=== PATIENT | male | born 1990 | race Caucasian/White ===

== ENCOUNTER 2016-08-03 19:28 | Emergency (ER) | payer OTHER ==
--- NOTE | 2016-08-03 22:31 | ED ORDER SUMMARY ---
..... Patient: AMY PEREZ JR OrderSheet [facility] VisitID: [id number] [place] [address] 26y, M Registration Date/Time: 08/03/2016 ORDER SHEET Weight: 70.3 kg (stated) Allergies: No Known Drug Allergy GENERAL ORDERS: CBC w Diff Urgent (20:48 08/03/2016 EKoroleva P.A.-C) (Ack 20:50 SRedmond) (21:08 DDean R.N.) CMP Urgent (20:48 08/03/2016 EKoroleva P.A.-C) (Ack 20:50 SRedmond) (21:08 DDean R.N.) UA-Culture if indicated Urgent (20:48 08/03/2016 EKoroleva P.A.-C) (Ack 20:50 SRedmond) (21:08 DDean R.N.) Lipase Urgent (20:48 08/03/2016 EKoroleva P.A.-C) (Ack 20:50 SRedmond) (21:08 DDean R.N.) MEDICATION ORDERS: IV FLUIDS: IV NS : initial bolus 1000 mL (1000 mL/hr), then 1000 mL/hr for X1 (NOW); Luis Daniel (20:47 08/03/2016 EKoroleva P.A.-C) (21:10 DDean R.N.) Reglan IV 10 mg (NOW) (20:47 08/03/2016 EKoroleva P.A.-C) (21:10 DDean R.N.) Zofran IV 8 mg (NOW) (20:48 08/03/2016 EKoroleva P.A.-C) (21:10 DDean R.N.) ORDER SHEET NOTES: [Electronically signed by Digna Cannon R.N. (23:13 08/03/2016)] [Electronically signed by Sagrario Nuñez P.A.-C (00:53 08/04/2016)] [Electronically locked/signed by Digna Cannon R.N. (23:13 08/03/2016)]
--- NOTE | 2016-08-03 22:31 | ED ORDER SUMMARY ---
..... Patient: AMY PEREZ JR OrderSheet [facility] VisitID: [id number] [place] [address] 26y, M Registration Date/Time: 08/03/2016 ORDER SHEET Weight: 70.3 kg (stated) Allergies: No Known Drug Allergy GENERAL ORDERS: CBC w Diff Urgent (20:48 08/03/2016 EKoroleva P.A.-C) (Ack 20:50 SRedmond) (21:08 DDean R.N.) CMP Urgent (20:48 08/03/2016 EKoroleva P.A.-C) (Ack 20:50 SRedmond) (21:08 DDean R.N.) UA-Culture if indicated Urgent (20:48 08/03/2016 EKoroleva P.A.-C) (Ack 20:50 SRedmond) (21:08 DDean R.N.) Lipase Urgent (20:48 08/03/2016 EKoroleva P.A.-C) (Ack 20:50 SRedmond) (21:08 DDean R.N.) MEDICATION ORDERS: IV FLUIDS: IV NS : initial bolus 1000 mL (1000 mL/hr), then 1000 mL/hr for X1 (NOW); Luis Daniel (20:47 08/03/2016 EKoroleva P.A.-C) (21:10 DDean R.N.) Reglan IV 10 mg (NOW) (20:47 08/03/2016 EKoroleva P.A.-C) (21:10 DDean R.N.) Zofran IV 8 mg (NOW) (20:48 08/03/2016 EKoroleva P.A.-C) (21:10 DDean R.N.) ORDER SHEET NOTES: [Electronically signed by Digna Cannon R.N. (23:13 08/03/2016)] [Electronically signed by Sagrario Nuñez P.A.-C (00:53 08/04/2016)] [Electronically locked/signed by Digna Cannon R.N. (23:13 08/03/2016)]
--- NOTE | 2016-08-03 22:31 | ED NURSING NOTES ---
Clinical Report - Nurses [facility] [address] [place] [address] 08/03/2016 19:29 Patient: AMY PEREZ JR TRIAGE Triage time 2019. Acuity: LEVEL 3. Chief Complaint: ABDOMINAL PAIN, NAUSEA, VOMITING and DIARRHEA. 20:20. --23:13 Digna Cannon R.N. 20:20 08/03/16. BP: 104/72. HR: 88. RR: 18. O2 saturation: 100%. Temp: 98.5 F. Pain level now: 09/23. --23: Digna Cannon R.N. Weight: 70.3 kg stated. Height/Length: 73 inches Per Patient. BMI: 20.5. --20:30 Digna Cannon R.N. Medications None. --20:30 Digna Cannon R.N. Allergies No Known Drug Allergy. --20:30 Digna Cannon R.N. History Arrived by private vehicle. Historian: patient. Unaccompanied. This started yesterday. He has had vomiting (TNTC). He has had diarrhea (TNTC). He has had abdominal pain (generalized midline abd cindy "around my belly button"). SURGERY HX: No history of previous surgery. SOCIAL HX: Light tobacco smoker (cigarette)- less than 1/2 a pack per day. Occasional alcohol use. No drug use. --23:13 Digna Cannon R.N. PROBLEMS: Gastroenteritis [RuleOut]. --20:29 Digna Cannon R.N. ADDITIONAL SURGERIES: no known surgeries. Interventions ID band on patient. To treatment room. --23:13 Digna Cannon R.N. PHYSICAL ASSESSMENT 20:20. Ambulatory to room. Patient gowned. GENERAL / NEURO / PSYCH: Alert. Oriented X 4. Appears in pain. RESPIRATORY: Respirations not labored. CVS: Capillary refill less than 2 seconds. GI / : Abdomen soft. SKIN: Skin is warm and dry. --20:44 Digna Cannon R.N. --23:11 Digna Cannon R.N. NURSING PROGRESS NOTES 20:20. Patient gowned. Reassurance given. Patient identifiers checked. Call light placed in reach. Side rails up. Bed placed in lowest position. Patient ready for evaluation- chart flagged. --20:44 Digna Cannon R.N. 21:00 08/03/2016 Site #1 started via IV in the right antecubital space with an 20g angiocath, with aseptic technique and good blood return; one attempt. Blood drawn: rainbow set. Labeled in the presence of the patient and sent to the lab. Saline lock flushed with 10 mL saline. --21:09 Digna Cannon R.N. 21:05 08/03/2016 Started bag #1 1000 mL IV Fluids IV NS (Saline); at 1000 mL/hr over 1 hour(s) via site #1 via IV pump. IV patency established. IV site checked: no pain, redness, or swelling. IV flushed thoroughly pre- and post-medication administration. --21:10 Digna Cannon R.N. 21:10 08/03/2016 Reglan (Metoclopramide HCl) IVP 10 mg given over 1 minute(s) via site #1. IV patency established. IV site checked: no pain, redness, or swelling. IV flushed thoroughly pre- and post-medication administration. IVP given by RN. --21:10 Digna Cannon R.N. 21:10 08/03/2016 Zofran (Ondansetron HCl) IVP 8 mg given over 1 minute(s) via site #1. IV patency established. IV site checked: no pain, redness, or swelling. IV flushed thoroughly pre- and post-medication administration. IVP given by RN. --21:10 Digna Cannon R.N. 20:45. Patient ID band checked for patient name and birthdate: patient confirmed. Clean catch urine collected; sample sent to lab for urinalysis and culture. Specimen labeled in the presence of the patient. --22:28 Digna Cannon R.N. 22:15 08/03/2016 IV Fluids IV NS Discontinued: bag #1 infused. Total amount infused: 1000 mL. IV patency established. IV site checked: no pain, redness, or swelling. IV flushed thoroughly. (converted to saline lock). --22:28 Digna Cannon R.N. 21:05 IV started and blood drawn. pt resting quietly. --22:29 Digna Cannon R.N. 22:15 08/03/16. BP: 95/52. HR: 67. RR: 18. O2 saturation: 98% on room air. Temp: 98.4 F. Pain level now: 0/10. Additional comments: pt denies pain, resting comfortably, watching t.v. . --22:30 Digna Cannon R.N. DISPOSITION / DISCHARGE 22:40. Condition at departure: stable. No learning barriers present. Discharge instructions provided and reviewed with the patient. Reviewed medication(s) (zofran). Patient verbalized understanding. Written instructions provided in Icelandic. The patient was discharged home. He left the Emergency Department ambulatory and via private vehicle. Patient driving. --23:11 Digna Cannon R.N. 22:40 08/03/16. BP: 90/60. HR: 68. RR: 16. O2 saturation: 100%. Temp: deferred. Pain level now: 0/10. --23:11 Digna Cannon R.N. Locked/Released at 08/03/2016 23:13 by Digna Cannon R.N.
--- NOTE | 2016-08-03 22:31 | ED CLINICAL REPORT ---
Clinical Report - [facility] [address] [place] [address] 08/03/2016 19:29 Patient: AMY PEREZ JR Time Seen: 21:15 Aug 03 2016. Arrived- By private vehicle. Historian- patient. HISTORY OF PRESENT ILLNESS Chief Complaint: VOMITING and DIARRHEA. This started just prior to arrival and is still present. (She presents to the emergency department status post eating tacos and developed vomiting and diarrhea. He has had some abdominal discomfort. He denies any other sick contacts, however nobody else ate the food. Denies any hematochezia, hemoptysis. Denies any melena. Denies any fevers. Denies any recent foreign travel or any antibiotic use.). REVIEW OF SYSTEMS No fever, difficulty with urination or cough. All systems otherwise negative, except as recorded above. SOCIAL HISTORY Smoker- current status unknown. Alcohol use. ADDITIONAL NOTES The nursing notes have been reviewed. PHYSICAL EXAM Vital Signs: 08/03/2016 20:20 BP: 104/72. HR: 88. RR: 18. O2 saturation: 100%. Temp: 98.5 F. Pain level now: 6/10. Appearance: Alert. No acute distress. ENT: Nose normal. Pharynx normal. Neck: Normal inspection. CVS: Normal heart rate and rhythm. Heart sounds normal. Rhythm normal. No extra heart sounds. Respiratory: No respiratory distress. Breath sounds normal. No accessory muscle use or decreased air movement. Abdomen: Soft and nontender. Bowel sounds normal. The bowel sounds are not abnormal. Back: Normal inspection. No CVA tenderness. Skin: Skin warm. Normal skin color. Neuro: Oriented X 3. LABS, X-RAYS, AND EKG Laboratory Tests: UA-Culture if indicated: (BRIAN: 08/03/2016 20:50) ( MsgRcvd 08/03/2016 21:17) Final results Test Result Flag Units (Reference) URINE COLOR YELLOW URINE APPEARANCE CLEAR URINE GLUCOSE NEGATIVE (NEGATIVE) URINE BILIRUBIN ICTOTEST NEGATIVE (NEGATIVE) URINE KETONE 2+ (NEGATIVE) URINE SPECIFIC GRAVITY 1.025 (1.010-1.030) URINE PH 6.0 (5.0-8.0) URINE PROTEIN 1+ (NEGATIVE) URINE UROBILINOGEN 1.0 EU/dL (0.2-1.0) URINE NITRITE NEGATIVE (NEGATIVE) URINE BLOOD NEGATIVE (NEGATIVE) URINE LEUK ESTERASE NEGATIVE (NEGATIVE) URINE RBC 0-1 rbc/hpf (0-1) URINE WBC 0-1 wbc/hpf (0-1) URINE EPITHELIAL CELLS 0-1 EPI/hpf (0-5) URINE BACTERIA FEW (1+) (NONE SEEN) URINE COMMENT CULT NOT INDICATED 5-10 HYALINE CAST. 2+ MUCOUS.URINE CULTURES ARE SET-UP BASED ON THE FOLLOWING CRITERIA:POSITIVE NITRITEPOSITIVE LEUKOCYTE ESTERASEGREATER THAN 10 WHITE BLOOD CELLSMODERATE (2+) OR GREATER BACTERIA CBC w Diff: (BRIAN: 08/03/2016 21:00) ( [facility] 08/03/2016 21:18) Final results Test Result Flag Units (Reference) WHITE BLOOD COUNT 10.1 K/uL (4.5-11.5) RED BLOOD COUNT 5.12 M/uL (4.50-5.90) HEMOGLOBIN 15.5 gm/dL (13.5-17.5) HEMATOCRIT 46.4 % (41.0-53.0) MEAN CELL VOLUME 91 fL (80-100) MEAN CORPUSCULAR HGB 30 pg (26-34) MEAN CORPUSCULAR HGB CONC 34 g/dL (31-37) RED CELL DISTRIBUTION WIDTH 13.1 % (11.6-14.8) PLATELET COUNT 174 K/uL (150-400) NEUTROPHIL % 74.5 % (50-75) LYMPH % 18.7 L % (25-40) MONO % 6.4 % (3-14) EOSINOPHIL % 0.1 % (0-4) BASOPHIL % 0.3 % (0-2) CMP: (BRIAN: 08/03/2016 21:00) ( [facility] 08/03/2016 21:48) Final results Test Result Flag Units (Reference) GLUCOSE 115 H mg/dL (70-110) BUN 22 H mg/dL (7-18) CREATININE 1.0 mg/dL (0.6-1.3) Estimated GFR >60 mL/min Estimated GFR- >60 mL/min Note: Persistent reduction over 3 months in eGFR<60 mL/min/1.73 m2 defines CKD. Patients with eGFR values>=60 mL/min/1.73 m2 may also have CKD if evidence ofpersistent proteinuria. Additional information may be foundat www.kidney.org. SODIUM 140 mmol/L (136-145) POTASSIUM 4.2 mmol/L (3.5-5.1) CHLORIDE 104 mmol/L (98-107) CARBON DIOXIDE 26 mmol/L (21-32) CALCIUM 9.6 mg/dL (8.5-10.1) TOTAL PROTEIN 7.8 g/dL (6.4-8.2) ALBUMIN 4.1 g/dL (3.3-5.0) BILIRUBIN, TOTAL 0.7 mg/dL (0.0-1.0) ALKALINE PHOSPHATASE 76 U/L (46-116) AST (SGOT) 11 L U/L (15-37) ALT (SGPT) 24 U/L (12-78) LIPASE 87 U/L (73-393) . PROGRESS AND PROCEDURES Course of Care: During the time in the ED, the following DDX were considered: acute surgical abdomen, hemodynamic or metabolic instability, dehydration, gastroenteritis-viral, food borne, or bacterial, food intolerance, irritable or inflammatory bowel, infection, sepsis. 08/03/2016 22:40 BP: 90/60. HR: 68. RR: 16. O2 saturation: 100%. Pain level now: 0/10. Patient is stable. Physical exam findings are improved. Symptoms better. Patient/family counseled. Disposition: Discharged. CLINICAL IMPRESSION Vomiting with nausea, dehydration and volume depletion. Diarrhea INSTRUCTIONS Do not work today, tomorrow. Prescription Medications: Zofran (orally disintegrating tablets) 4 mg: take 1 orally every 6 hours for 3 days as needed for nausea. Dispense ten (10). No refill. Substitution is permissible. (Electronically signed by Sagrario Nuñez P.A.-C 08/04/2016 0:53)
--- NOTE | 2016-08-04 00:53 | ED MAR SUMMARY ---
..... Medication Administration Record [facility] [address] [address] Patient: AMY PEREZ Visit ID: [id number] 26y, M Weight: 70.3 kg Height/Length: 73 in BMI: 20.5 ALLERGIES: No Known Drug Allergy Start 21:05 08/03/2016 Digna Cannon R.N., Stop 22:15 08/03/2016 Digna Cannon R.N. Medication Administered: IV NS (SALINE), Dose: IV Fluids over 1 hour(s), Rate: 1000 mL/hr, Dispensed: 1000 mL bag, Site: #1 right AC. Medication Ordered: IV NS : initial bolus 1000 mL (1000 mL/hr), then 1000 mL/hr for X1 (NOW); Luis Daniel. Given 21:08/03/2016 Digna Cannon R.N. Medication Administered: REGLAN [IVP] (METOCLOPRAMIDE HCL), Dose: 10 mg IVP over 1 minute(s), Site: #1 right AC. Medication Ordered: Reglan IV 10 mg (NOW). Given 21:10 08/03/2016 Digna Cannon R.N. Medication Administered: ZOFRAN [IVP] (ONDANSETRON HCL), Dose: 8 mg IVP over 1 minute(s), Site: #1 right AC. Medication Ordered: Zofran IV 8 mg (NOW).
--- NOTE | 2016-08-04 00:53 | ED MAR SUMMARY ---
..... Medication Administration Record [facility] [address] [place] [address] Patient: AMY PEREZ Visit ID: [id number] 26y, M Weight: 70.3 kg Height/Length: 73 in BMI: 20.5 ALLERGIES: No Known Drug Allergy Start 21:05 08/03/2016 Digna Cannon R.N., Stop 22:15 08/03/2016 Digna Cannon R.N. Medication Administered: IV NS (SALINE), Dose: IV Fluids over 1 hour(s), Rate: 1000 mL/hr, Dispensed: 1000 mL bag, Site: #1 right AC. Medication Ordered: IV NS : initial bolus 1000 mL (1000 mL/hr), then 1000 mL/hr for X1 (NOW); Luis Daniel. Given 21:08/03/2016 Digna Cannon R.N. Medication Administered: REGLAN [IVP] (METOCLOPRAMIDE HCL), Dose: 10 mg IVP over 1 minute(s), Site: #1 right AC. Medication Ordered: Reglan IV 10 mg (NOW). Given 21:10 08/03/2016 Digna Cannon R.N. Medication Administered: ZOFRAN [IVP] (ONDANSETRON HCL), Dose: 8 mg IVP over 1 minute(s), Site: #1 right AC. Medication Ordered: Zofran IV 8 mg (NOW).
--- NOTE | 2016-08-04 00:53 | ED MED RECONCILIATION SUMMARY ---
Patient: AMY PEREZ JR Medication Reconciliation Report [facility] VisitID: [id number] [address] [place] [address] 26y, M Registration Date/Time: 08/03/2016 Weight: 70.3 kg Height/Length: 73 in. BMI: 20.5 ALLERGIES: No Known Drug Allergy The patient's Home Medications are listed below: NONE. The source(s) of the original Home Medication information: Not obtained. The following Medications were given to the patient in the Emergency Department: IV NS IV Fluids bolus 0, then 1000 mL/hr, administered: 08/03/2016 9:05:00 PM Reglan [IVP] IVP 10 mg, administered: 08/03/2016 9:10:00 PM Zofran [IVP] IVP 8 mg, administered: 08/03/2016 9:10:00 PM The following Medications were prescribed to the patient: Zofran (orally disintegrating tablets) 4 mg: take 1 orally every 6 hours for 3 days as needed for nausea. Dispense ten (10). No refill. Substitution is permissible. -- Sagrario Nuñez P.AShreyasC
--- NOTE | 2016-08-04 00:53 | ED DISCHARGE INSTRUCTIONS ---
Patient: AMY PEREZ JR General Instructions [facility] VisitID: [id number] [place] [address] 26y, M Registration Date/Time: 08/03/2016 Vomiting with nausea, dehydration and volume depletion. Diarrhea INSTRUCTIONS Do not work today, tomorrow. Prescription Medications: Zofran (orally disintegrating tablets) 4 mg: take 1 orally every 6 hours for 3 days as needed for nausea. Dispense ten (10). No refill. Substitution is permissible. ADDITIONAL INFORMATION Vomiting [6Yr-Adult] Vomiting is a common symptom that may be due to different causes. These include gastroenteritis ("stomach flu"), food poisoning and gastritis. There are other more serious causes of vomiting which may be hard to diagnose early in the illness. Therefore, it is important to watch for the warning signs listed below. The main danger from repeated vomiting is dehydration. This is due to excess loss of water and minerals from the body. When this occurs, body fluids must be replaced. Home Care: If symptoms are severe, rest at home for the next 24 hours. You may use acetaminophen (Tylenol) or ibuprofen (Motrin, Advil) to control fever, unless another medicine was prescribed. [NOTE : If you have chronic liver or kidney disease or ever had a stomach ulcer or GI bleeding, talk with your doctor before using these medicines.] (Aspirin should never be used in anyone under 18 years of age who is ill with a fever. It may cause severe liver damage.) Avoid tobacco and alcohol use, which may worsen your symptoms. If medicines for vomiting were prescribed, take as directed. Once vomiting stops, then follow these guidelines: During The First 12-24 Hours follow the diet below: FRUIT JUICES: Apple, grape juice, clear fruit drinks, and electrolyte replacement drinks. BEVERAGES: Soft drinks without caffeine; mineral water (plain or flavored), decaffeinated tea and coffee. SOUPS: Clear broth, consomm and bouillon DESSERTS: Plain gelatin, popsicles and fruit juice bars. As you feel better, you may add 6-8 ounces of yogurt per day. During The Next 24 Hours you may add the following to the above: Hot cereal, plain toast, bread, rolls, crackers Plain noodles, rice, mashed potatoes, chicken noodle or rice soup Unsweetened canned fruit (avoid pineapple), bananas Limit caffeine and chocolate. No spices or seasonings except salt. During The Next 24 Hours Gradually resume a normal diet, as you feel better and your symptoms lessen. Follow Up with your doctor as advised if you are not improving over the next 2-3 days. Get Prompt Medical Attention if any of the following occur: Constant right-sided lower abdominal pain or increasing general abdominal pain Continued vomiting (unable to keep liquids down) for 24 hours Frequent diarrhea (more than 5 times a day); blood (red or black color) or mucus in diarrhea Reduced urine output or extreme thirst Weakness, dizziness or fainting Unusually drowsy or confused Fever of 100.4F (38C) oral or higher, not better with fever medication Yellow color of the eyes or skin Gastroenteritis [Non-Infectious, 6 Yr-Adult] Your symptoms today are coming from the intestinal tract. This may occur as a result of food sensitivity, inflammation of the GI tract, medicines, stress or other causes not related to infection. This may last from 1-3 days. Antibiotics are not effective, but simple home treatment will be helpful. Home Care: If symptoms are severe, rest at home for the next 24 hours. You may use acetaminophen (Tylenol) or ibuprofen (Motrin, Advil) to control fever, unless another medicine was prescribed. [NOTE: If you have chronic liver or kidney disease or ever had a stomach ulcer or GI bleeding, talk with your doctor before using these medicines.] (Aspirin should never be used in anyone under 18 years of age who is ill with a fever. It may cause severe liver damage.) Avoid tobacco and alcohol use, which may make your symptoms worse. If medicines for diarrhea or vomiting were prescribed, take only as directed. Once vomiting stops, then follow these guidelines: During The First 12-24 Hours follow the diet below: gingerale, mineral water (plain or flavored), decaffeinated tea and coffee. During The Next 24 Hours you may add the following to the above: DURING THE NEXT 24 HOURS Gradually resume a normal diet, as you feel better and your symptoms lessen. Follow Up with your doctor as advised if you are not improving over the next 2-3 days. If a stool (diarrhea) sample was taken, you may call in 2 days (or as directed) for the results. Get Prompt Medical Attention if any of the following occur: Increasing abdominal pain or constant lower right abdominal pain Continued vomiting (unable to keep liquids down) Frequent diarrhea (more than 5 times a day) Blood in vomit or stool (black or red color) Reduced oral intake Dark urine, reduced urine output Weakness, dizziness, fainting Drowsiness, confusion, stiff neck or seizure Fever of 100.4F (38C) or higher, or as directed by your healthcare provider New rash Ondansetron Hydrochloride Oral tablet What is this medicine? ONDANSETRON (on ERICK se nathalia) is used to treat nausea and vomiting caused by chemotherapy. It is also used to prevent or treat nausea and vomiting after surgery. How should I use this medicine? Take this medicine by mouth with a glass of water. Follow the directions on your prescription label. Take your doses at regular intervals. Do not take your medicine more often than directed. Talk to your director radio news regarding the use of this medicine in children. Special care may be needed. What side effects may I notice from receiving this medicine? Side effects that you should report to your doctor or health care support representative as soon as possible: allergic reactions like skin rash, itching or hives, swelling of the face, lips or tongue breathing problems dizziness fast or irregular heartbeat feeling faint or lightheaded, falls fever and chills swelling of the hands or feet tightness in the chest Side effects that usually do not require medical attention (report to your doctor or health care support representative if they continue or are bothersome): constipation or diarrhea headache What may interact with this medicine? Do not take this medicine with any of the following medications: -apomorphine -cisapride -dofetilide -dronedarone -pimozide -thioridazine -ziprasidone This medicine may also interact with the following medications: -carbamazepine -phenytoin -rifampicin -tramadol -other medicines that prolong the QT interval (cause an abnormal heart rhythm) What if I miss a dose? If you miss a dose, take it as soon as you can. If it is almost time for your next dose, take only that dose. Do not take double or extra doses. Where should I keep my medicine? Keep out of the reach of children. Store between 2 and 30 degrees C (36 and 86 degrees F). Throw away any unused medicine after the expiration date. What should I tell my health care provider before I take this medicine? They need to know if you have any of these conditions: heart disease history of irregular heartbeat liver disease low levels of magnesium or potassium in the blood an unusual or allergic reaction to ondansetron, granisetron, other medicines, foods, dyes, or preservatives or trying to get breast-feeding What should I watch for while using this medicine? Check with your doctor or health care support representative right away if you have any sign of an allergic reaction. You have been given the following additional information: Vomiting (6Y-Adult) Gastroenteritis, Non-Infectious (Child) (Adult) Ondansetron Hydrochloride Oral tablet Do not work today, tomorrow. (Electronically signed by Sagrario Nuñez P.A.-C 08/04/2016 0:53)
--- NOTE | 2016-08-04 00:53 | ED MED RECONCILIATION SUMMARY ---
Patient: AMY PEREZ JR Medication Reconciliation Report [facility] VisitID: [id number] [address] [place] [address] 26y, M Registration Date/Time: 08/03/2016 Weight: 70.3 kg Height/Length: 73 in. BMI: 20.5 ALLERGIES: No Known Drug Allergy The patient's Home Medications are listed below: NONE. The source(s) of the original Home Medication information: Not obtained. The following Medications were given to the patient in the Emergency Department: IV NS IV Fluids bolus 0, then 1000 mL/hr, administered: 08/03/2016 9:05:00 PM Reglan [IVP] IVP 10 mg, administered: 08/03/2016 9:10:00 PM Zofran [IVP] IVP 8 mg, administered: 08/03/2016 9:10:00 PM The following Medications were prescribed to the patient: Zofran (orally disintegrating tablets) 4 mg: take 1 orally every 6 hours for 3 days as needed for nausea. Dispense ten (10). No refill. Substitution is permissible. -- Sagrario Nuñez P.AShreyasC
--- NOTE | 2016-08-04 00:53 | ED DISCHARGE INSTRUCTIONS ---
Patient: AMY PEREZ JR General Instructions Formerly [facility] VisitID: [id number] [place] [address] 26y, M Registration Date/Time: 08/03/2016 Vomiting with nausea, dehydration and volume depletion. Diarrhea INSTRUCTIONS Do not work today, tomorrow. Prescription Medications: Zofran (orally disintegrating tablets) 4 mg: take 1 orally every 6 hours for 3 days as needed for nausea. Dispense ten (10). No refill. Substitution is permissible. ADDITIONAL INFORMATION Vomiting [6Yr-Adult] Vomiting is a common symptom that may be due to different causes. These include gastroenteritis ("stomach flu"), food poisoning and gastritis. There are other more serious causes of vomiting which may be hard to diagnose early in the illness. Therefore, it is important to watch for the warning signs listed below. The main danger from repeated vomiting is dehydration. This is due to excess loss of water and minerals from the body. When this occurs, body fluids must be replaced. Home Care: If symptoms are severe, rest at home for the next 24 hours. You may use acetaminophen (Tylenol) or ibuprofen (Motrin, Advil) to control fever, unless another medicine was prescribed. [NOTE : If you have chronic liver or kidney disease or ever had a stomach ulcer or GI bleeding, talk with your doctor before using these medicines.] (Aspirin should never be used in anyone under 18 years of age who is ill with a fever. It may cause severe liver damage.) Avoid tobacco and alcohol use, which may worsen your symptoms. If medicines for vomiting were prescribed, take as directed. Once vomiting stops, then follow these guidelines: During The First 12-24 Hours follow the diet below: FRUIT JUICES: Apple, grape juice, clear fruit drinks, and electrolyte replacement drinks. BEVERAGES: Soft drinks without caffeine; mineral water (plain or flavored), decaffeinated tea and coffee. SOUPS: Clear broth, consomm and bouillon DESSERTS: Plain gelatin, popsicles and fruit juice bars. As you feel better, you may add 6-8 ounces of yogurt per day. During The Next 24 Hours you may add the following to the above: Hot cereal, plain toast, bread, rolls, crackers Plain noodles, rice, mashed potatoes, chicken noodle or rice soup Unsweetened canned fruit (avoid pineapple), bananas Limit caffeine and chocolate. No spices or seasonings except salt. During The Next 24 Hours Gradually resume a normal diet, as you feel better and your symptoms lessen. Follow Up with your doctor as advised if you are not improving over the next 2-3 days. Get Prompt Medical Attention if any of the following occur: Constant right-sided lower abdominal pain or increasing general abdominal pain Continued vomiting (unable to keep liquids down) for 24 hours Frequent diarrhea (more than 5 times a day); blood (red or black color) or mucus in diarrhea Reduced urine output or extreme thirst Weakness, dizziness or fainting Unusually drowsy or confused Fever of 100.4F (38C) oral or higher, not better with fever medication Yellow color of the eyes or skin Gastroenteritis [Non-Infectious, 6 Yr-Adult] Your symptoms today are coming from the intestinal tract. This may occur as a result of food sensitivity, inflammation of the GI tract, medicines, stress or other causes not related to infection. This may last from 1-3 days. Antibiotics are not effective, but simple home treatment will be helpful. Home Care: If symptoms are severe, rest at home for the next 24 hours. You may use acetaminophen (Tylenol) or ibuprofen (Motrin, Advil) to control fever, unless another medicine was prescribed. [NOTE: If you have chronic liver or kidney disease or ever had a stomach ulcer or GI bleeding, talk with your doctor before using these medicines.] (Aspirin should never be used in anyone under 18 years of age who is ill with a fever. It may cause severe liver damage.) Avoid tobacco and alcohol use, which may make your symptoms worse. If medicines for diarrhea or vomiting were prescribed, take only as directed. Once vomiting stops, then follow these guidelines: During The First 12-24 Hours follow the diet below: gingerale, mineral water (plain or flavored), decaffeinated tea and coffee. During The Next 24 Hours you may add the following to the above: DURING THE NEXT 24 HOURS Gradually resume a normal diet, as you feel better and your symptoms lessen. Follow Up with your doctor as advised if you are not improving over the next 2-3 days. If a stool (diarrhea) sample was taken, you may call in 2 days (or as directed) for the results. Get Prompt Medical Attention if any of the following occur: Increasing abdominal pain or constant lower right abdominal pain Continued vomiting (unable to keep liquids down) Frequent diarrhea (more than 5 times a day) Blood in vomit or stool (black or red color) Reduced oral intake Dark urine, reduced urine output Weakness, dizziness, fainting Drowsiness, confusion, stiff neck or seizure Fever of 100.4F (38C) or higher, or as directed by your healthcare provider New rash Ondansetron Hydrochloride Oral tablet What is this medicine? ONDANSETRON (on ERICK se nathalia) is used to treat nausea and vomiting caused by chemotherapy. It is also used to prevent or treat nausea and vomiting after surgery. How should I use this medicine? Take this medicine by mouth with a glass of water. Follow the directions on your prescription label. Take your doses at regular intervals. Do not take your medicine more often than directed. Talk to your salvage worker regarding the use of this medicine in children. Special care may be needed. What side effects may I notice from receiving this medicine? Side effects that you should report to your doctor or health primary care nurse practitioner as soon as possible: allergic reactions like skin rash, itching or hives, swelling of the face, lips or tongue breathing problems dizziness fast or irregular heartbeat feeling faint or lightheaded, falls fever and chills swelling of the hands or feet tightness in the chest Side effects that usually do not require medical attention (report to your doctor or health primary care nurse practitioner if they continue or are bothersome): constipation or diarrhea headache What may interact with this medicine? Do not take this medicine with any of the following medications: -apomorphine -cisapride -dofetilide -dronedarone -pimozide -thioridazine -ziprasidone This medicine may also interact with the following medications: -carbamazepine -phenytoin -rifampicin -tramadol -other medicines that prolong the QT interval (cause an abnormal heart rhythm) What if I miss a dose? If you miss a dose, take it as soon as you can. If it is almost time for your next dose, take only that dose. Do not take double or extra doses. Where should I keep my medicine? Keep out of the reach of children. Store between 2 and 30 degrees C (36 and 86 degrees F). Throw away any unused medicine after the expiration date. What should I tell my health care provider before I take this medicine? They need to know if you have any of these conditions: heart disease history of irregular heartbeat liver disease low levels of magnesium or potassium in the blood an unusual or allergic reaction to ondansetron, granisetron, other medicines, foods, dyes, or preservatives or trying to get breast-feeding What should I watch for while using this medicine? Check with your doctor or health primary care nurse practitioner right away if you have any sign of an allergic reaction. You have been given the following additional information: Vomiting (6Y-Adult) Gastroenteritis, Non-Infectious (Child) (Adult) Ondansetron Hydrochloride Oral tablet Do not work today, tomorrow. (Electronically signed by Sagrario Nuñez P.A.-C 08/04/2016 0:53)
== END 2016-08-03 22:40 | disposition home or self-care (01) ==
LOC: ED SRH 19:28
DX: R11.2 Nausea with vomiting, unspecified (principal); E86.0 Dehydration; R19.7 Diarrhea, unspecified; E86.9 Volume depletion, unspecified; F17.210 Nicotine dependence, cigarettes, uncomplicated
CPT/HCPCS: 90004; 90100; 92235; 95059